=== PATIENT | female | born 1995 | race Caucasian/White ===

== ENCOUNTER 2017-12-06 13:43 | Emergency (ER) | payer OTHER ==
--- NOTE | 2017-12-06 14:23 | ER Document Report ---
ED Medical Screen (RME) - General Chief Complaint: Abdominal Pain Stated Complaint: STOMACH PAIN Time Seen by Provider: 12/06/17 14:19 Mode of Arrival: Ambulatory Information source: Patient Notes: This is a 22-year-old female 2 para 0, history of molar with first (status post D&C, chemotherapy 2 years ago). The patient presents to the emergency room with suprapubic discomfort in the setting of positive test [place] Patient denies any vaginal bleeding. Patient's blood type is O+. Allergies: ChloraPrep Medicine: Folic acid TRAVEL OUTSIDE OF THE [place] IN LAST 30 DAYS: No - HPI Onset: Just prior to arrival Onset/Duration: Gradual Quality of pain: Dull Severity: Mild Pain Level: 2 Associated Symptoms: denies: Chest pain, Shortness of breath Exacerbated by: Denies Relieved by: Denies Similar symptoms previously: Yes Recently seen / treated by doctor: Yes - Related Data Smoking: Non-smoker Frequency of alcohol use: None Drug Abuse: None Allergies/Adverse Reactions: chlor a prep Adverse Reaction (Uncoded 12/06/17 14:13) Past Medical History - General Information source: Patient - Social History Chew tobacco use (# tins/day): No Frequency of alcohol use: None Drug Abuse: None Lives with: Family Family history: None - Past Medical History Cardiac Medical History: Reports: None Pulmonary Medical History: Reports: None EENT Medical History: Reports: None Neurological Medical History: Reports: None Endocrine Medical History: Reports: None Renal/ Medical History: Reports: None. 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 GI Medical History: Reports: None Skin Medical History: Reports None Psychiatric Medical History: Reports: None Traumatic Medical History: Reports: None Infectious Medical History: Reports: None Past Surgical History: Reports: Other - D&C for molar Review of Systems - Review of Systems Constitutional: denies: Chills, Fever EENT: No symptoms reported Cardiovascular: No symptoms reported Respiratory: No symptoms reported Gastrointestinal: No symptoms reported Genitourinary: See HPI Female Genitourinary: See HPI Musculoskeletal: No symptoms reported Skin: No symptoms reported Hematologic/Lymphatic: No symptoms reported Neurological/Psychological: No symptoms reported Physical Exam - Vital signs Vitals: Temp Pulse Resp BP Pulse Ox 98.3 F 74 20 118/61 98 06/10/18 13:48 12/06/17 13:48 12/06/17 13:48 12/06/17 13:48 12/06/17 13:48 Notes: Physical exam: GENERAL: 22-year-old female, alert and oriented 3, no acute distress HEAD: Atraumatic, normocephalic. EYES: Pupils equal round and reactive to light, extraocular movements intact, sclera anicteric, conjunctiva are normal. ENT: Moist mucous membranes. NECK: Normal range of motion, supple without obvious mass LUNGS: Breath sounds clear to auscultation bilaterally and equal. No wheezes rales or rhonchi. HEART: Regular rate and rhythm without murmurs, rubs or gallops. ABDOMEN: Soft, normoactive bowel sounds. No significant tenderness to palpation. No guarding, no rebound. No masses appreciated. EXTREMITIES: Normal range of motion, no pitting or edema. No clubbing or cyanosis. NEUROLOGICAL: Cranial nerves II through XII grossly intact. Normal speech, moving all extremities. PSYCH: Normal mood, normal affect. SKIN: Warm, Dry, normal turgor, no rashes or lesions noted. Course - Re-evaluation Re-evalutation: 12/06/17 16:19 Note: Patient is personally asked me if we could not do a transvaginal ultrasound because of the last time she had it during her previous molar , she had a lot of discomfort. I have discussed this with the pressure testing technician and she will perform a transabdominal ultrasound and if she is unable to see anything, she will then do a transvaginal approach. I reviewed the ultrasound as well as the ultrasound report. There is an intrauterine gestational sac. There is no obvious pole or heartbeat but it is early given the transabdominal approach. Patient looks quite good. I have given her good instructions to follow-up with her OB doctor at [facility] tomorrow. I have given her copies of her beta quant (which is consistent with what is seen on ultrasound", the ultrasound report as well as the ultrasound on disc. - Vital Signs Vital signs: Temp Pulse Resp BP Pulse Ox 98.2 F 77 18 117/54 L 98 12/06/17 16:08 12/06/17 16:08 12/06/17 16:08 12/06/17 16:08 12/06/17 16:08 - Laboratory Result Diagrams: 12/06/17 14:28 Laboratory results interpreted by me: 12/06/17 14:28 Beta HCG, Quant [id number] H Doctor's Discharge - Discharge Clinical Impression: Pelvic pain in early Condition: Stable Disposition: HOME, SELF-CARE Additional Instructions: Note: The ultrasound today was a transabdominal approach (we were trying to avoid the transvaginal approach due to discomfort) and it shows an early gestational sac which is intrauterine (this is what you want). There is no evidence of a molar . The beta quant (i.e. the baby level) is appropriate for what we see on ultrasound. I do want you to follow-up with your OB doctor tomorrow. Bring a copy of today' s ultrasound report, the ultrasound on disc as well as the beta quant with you when you go for that evaluation. I want you to return to the emergency room for worsening pain, vaginal bleeding or any concerns or getting worse. The radiologist will not report a definitive intrauterine until they can visualize a heartbeat within the gestational sac. It is felt to be too early for this at this time given the transabdominal approach.
[2017-12-06 14:36] LABS: ABSOLUTE BASOPHILS # (AUTO) 0.1 10^3/uL (0.0-0.2); ABSOLUTE EOSINOPHILS # (AUTO) 0.1 10^3/uL (0.0-0.6); ABSOLUTE LYMPHOCYTES (AUTO) 2.7 10^3/uL (0.5-4.7); ABSOLUTE MONOCYTES (AUTO) 0.8 10^3/uL (0.1-1.4); BASOPHILS % (AUTO) 0.6 % (0-2); EOSINOPHILS % (AUTO) 1.7 % (0-6); HEMATOCRIT 38.2 % (36.0-47.0); HEMOGLOBIN 13.3 g/dL (12.0-15.5); LYMPHOCYTES % (AUTO) 31.2 % (13-45); MEAN CORPUSCULAR HEMOGLOBIN 31.5 pg (27.0-33.4); MEAN CORPUSCULAR VOLUME 90 fl (80-97); MONOCYTES % (AUTO) 9.6 % (3-13); PLATELET COUNT 262 10^3/uL (150-450); RED BLOOD COUNT 4.24 10^6/uL (3.72-5.28); SEGMENTED NEUTROPHILS % (AUTO) 56.9 % (42-78); TOTAL CELLS COUNTED % (AUTO) 100 %; WHITE BLOOD COUNT 8.8 10^3/uL (4.0-10.5)
--- NOTE | 2017-12-06 15:26 | RADIOLOGY REPORT (SQ) ---
EXAM DESCRIPTION: U/S [id number] TRNABD 1GES W/ODOP COMPLETED DATE/TIME: 12/06/2017 2:50 pm REASON FOR STUDY: abd pain, preg. COMPARISON: None. TECHNIQUE: Transabdominal static and realtime grayscale images acquired of the pelvis. Additional se lected spectral and color Doppler images recorded. All images stored on PACs. bHCG: Not provided. LIMITATIONS: None. FINDINGS: UTERUS: No masses. No anomalies. GESTATIONAL SAC: Sac in the endometrial cavity at the uterine fundus measures 1.5 cm. This correlate s with a 6 week 2 day gestation. No pole yet identified, however. Yolk sac not reliably ident ified either. YOLK SAC: As above. POLE: As above. RIGHT ADNEXA: Ovary not identified. No adnexal free fluid. No adnexal masses. LEFT ADNEXA: Ovary not identified. No adnexal free fluid. No adnexal masses. FREE FLUID: None. OTHER: Cervix 3.3 cm, grossly closed. IMPRESSION: POSSIBLE EARLY INTRAUTERINE . NO YOLK SAC OR POLE YET IDENTIFIED, POSSIB LY DUE TO EARLY GESTATIONAL STATE. BHCG LEVEL APPROPRIATE FOR ENDOMETRIAL FINDINGS. CONSIDER F/U BHCG AND/OR ULTRASOUND FOR VERIFICATION AND TO EXCLUDE ECTOPIC . Trimester of : First - 0 to 13 weeks. TECHNICAL DOCUMENTATION: JOB ID: [id number] [employer]- All Rights Reserved Reading location - IP/workstation name: [email or web address]
[2017-12-06 16:09] VITALS: BP 117/54
== END 2017-12-06 16:23 | disposition home or self-care (01) ==
LOC: ER 13:43
DX: O26.899 Other specified pregnancy related conditions, unspecified trimester (principal); R10.2 Pelvic and perineal pain; Z3A.00 Weeks of gestation of pregnancy not specified; Z92.21 Personal history of antineoplastic chemotherapy; Z87.59 Personal history of other complications of pregnancy, childbirth and the puerperium; Z79.899 Other long term (current) drug therapy
CPT/HCPCS: 36415; 76801; 84702; 85025; 99284